=== PATIENT | male | born 1955 | race Caucasian/White ===

== ENCOUNTER → 2018-11-28 | Outpatient (CLI) | payer OTHER | LOC: M.ULTRA 12:07 | DX: K76.0 Fatty (change of) liver, not elsewhere classified (principal); R05 Cough; R06.00 Dyspnea, unspecified; Z90.49 Acquired absence of other specified parts of digestive tract ==

== ENCOUNTER → 2019-01-22 | Outpatient (CLI) | payer OTHER ==
[2019-01-22 17:00] LABS: ABSOLUTE EOSINOPHILS 0.2 thou/uL (0.0-0.7); ABSOLUTE LYMPHOCYTES 2.5 thou/uL (0.8-5.3); ABSOLUTE MONOCYTES 0.5 thou/uL (0.0-1.2); BASOPHILS 0.6 %; EOSINOPHILS 3.2 %; HEMATOCRIT 43.1 % (42.0-52.0); HEMOGLOBIN 14.5 gm/dL (14.0-18.0); LYMPHOCYTES 33.6 %; MCH 30.9 pg (26.0-34.0); MCHC 33.6 g/dL (28.0-37.0); MCV 91.8 fL (80.0-100.0); MONOCYTES 7.4 %; MPV 8.5 fl. (7.2-11.1); NUCLEATED RBCS 0 /100WBC; PLATELET COUNT* 243 thou/uL (150-400); POLYS 55.2 %; RDW-CV 12.9 % (10.5-14.5); WBC 7.3 thou/uL (4.0-11.0)
[2019-01-22 17:26] LABS: ALBUMIN 3.7 g/dL (3.4-5.0); CALCIUM 8.5 mg/dL (8.5-10.1); CREATININE 1.1 mg/dL (0.6-1.3); POTASSIUM 4.5 mmol/L (3.5-5.1); TOTAL BILIRUBIN 0.4 mg/dL (<0.1-1.0); TOTAL PROTEIN 6.9 g/dL (6.4-8.2)
[2019-01-22 18:09] LABS: ESR (SEDRATE) 4 mm/hr (0-20)
== END ==
LOC: M.LAB 16:30 → M.MRI 17:30
PROVIDERS: Psychiatry & Neurology Neuromuscular Medicine
DX: I67.82 Cerebral ischemia (principal); R41.3 Other amnesia; Z86.59 Personal history of other mental and behavioral disorders

== ENCOUNTER → 2019-02-05 | Outpatient (CLI) | payer OTHER ==
--- NOTE | 2019-02-05 15:01 | 2DMMODE ---
[place] [address] 2 D/M-MODE ECHOCARDIOGRAM Name: NATANAEL HAN Room: [facility]#: [id number] Admission: 02/05/19 Attend Phys: Thaddeus Rodriguez, Discharge: Date of : 55 Date of Service: 02/05/19 [facility] Report #: [id number] THIS REPORT FOR: //name// APPROVED REPORT Study performed: 02/05/2019 12:29:12 EXAM: Comprehensive 2D, Doppler, and color-flow Echocardiogram Patient Location: Out-Patient BSA: 2.04 HR: 80 bpm BP: 140/90 mmHg Other Information Study Quality: Good Indications Dyspnea 2D Dimensions IVSd: 11.77 (7-11mm) LVOT Diam: 20.85 (18-24mm) LVDd: 45.37 mm PWd: 10.82 (7-11mm) Ascending Ao: 29.11 (22-36mm) LVDs: 26.98 (25-40mm) Aortic Root: 30.37 mm Volumes Left Atrial Volume (Systole) LA ESV Index: 11.60 mL/m2 Aortic Valve AoV Peak Rosalino.: 1.30 m/s AO Peak Gr.: 6.71 mmHg LVOT Max P.14 mmHg AO Mean Gr.: 3.67 mmHg LVOT Mean P.09 mmHg LVOT Max V: 1.02 m/s AO V2 VTI: 26.12 cm LVOT Mean V: 0.66 m/s FUNMILAYO (VTI): 2.59 cm2 LVOT V1 VTI: 19.80 cm Mitral Valve E/A Ratio: 0.91 MV Decel. Time: 198.91 ms MV E Max Rosalino.: 0.76 m/s MV PHT: 57.68 ms MVA (PHT): 3.81 [place]2 [place] [address] 2 D/M-MODE ECHOCARDIOGRAM Name: NATANAEL HAN Room: [facility]#: [id number] Admission: 02/05/19 Attend Phys: Thaddeus Rodriguez, Discharge: Date of : 55 Date of Service: 02/05/19 1500 Report #: [id number] TDI E/Lateral E': 10.86 E/Medial E': 9.50 Medial E' Rosalino.: 0.08 m/s Lateral E' Rosalino.: 0.07 m/s Pulmonary Valve PV Peak Rosalino.: 1.38 m/s PV Peak Gr.: 7.66 mmHg Left Ventricle The left ventricle is normal size. There is normal LV segmental wall motion. There is normal left ventricular wall thickness. Left ventricular systolic function is normal. The left ventricular ejection fraction is within the normal range. LVEF is 65-70%. The left ventricular diastolic function is normal. Right Ventricle The right ventricle is normal size. The right ventricular systolic function is normal. Atria The left atrium size is normal. The right atrium size is normal. Aortic Valve The aortic valve is normal in structure. No aortic regurgitation is present. There is no aortic valvular stenosis. Mitral Valve The mitral valve is normal in structure. There is no mitral valve regurgitation noted. No evidence of mitral valve stenosis. Tricuspid Valve The tricuspid valve is normal in structure. There is no tricuspid valve regurgitation noted. Pulmonic Valve Pulmonic valve is not well visualized. There is no pulmonic valvular regurgitation. Great Vessels The aortic root is normal in size. IVC is normal in size and collapses >50% with inspiration. Pericardium There [place] [address] 2 D/M-MODE ECHOCARDIOGRAM Name: NATANAEL HAN Room: [facility]#: [id number] Admission: 02/05/19 Attend Phys: Thaddeus Rodriguez, Discharge: Date of : 55 Date of Service: 02/05/19 1500 Report #: [id number] <Conclusion> Left ventricular systolic function is normal. The left ventricular ejection fraction is within the normal range. <ELECTRONICALLY SIGNED> By: Yomi Bui MD, [facility] [id number] 1500 99 Yomi Bui MD, FACC /INF
== END ==
LOC: M.CRD 02-04 11:00
DX: R06.09 Other forms of dyspnea (principal)